=== PATIENT | female | born 1945 | race Caucasian/White ===

== ENCOUNTER 2023-01-29 15:52 | Emergency (ER) | payer OTHER ==
[~2023-01-29] VITALS: Ht 137.2 cm; Wt 92.5 kg
[2023-01-29 16:28] LABS: BASOPHILS # (AUTO) 0.1 K/uL (0.0-0.2); BASOPHILS % (AUTO) 0.7 % (0.0-2.0); EOSINOPHILS # (AUTO) 0.5 K/uL (0.0-0.7); EOSINOPHILS % (AUTO) 6.2 % (0.0-6.0); HEMATOCRIT 37 % (33-45); HEMOGLOBIN 12.4 g/dL (11.5-14.8); LYMPHOCYTES # (AUTO) 1.1 K/uL (0.8-4.8); LYMPHOCYTES % (AUTO) 14.2 % (20.0-44.0); MEAN CORPUSCULAR HEMOGLOBIN 27 PG (26.0-33.0); MEAN CORPUSCULAR HGB CONC 34 g/dl (31.0-36.0); MEAN CORPUSCULAR VOLUME 81 fL (82-100); MONOCYTES # (AUTO) 0.6 K/uL (0.1-1.30); MONOCYTES % (AUTO) 8.3 % (2.0-12.0); NEUTROPHILS # (AUTO) 5.5 K/uL (1.8-8.9); NEUTROPHILS % (AUTO) 70.6 % (43.0-81.0); PLATELET COUNT (AUTO) 291 K/uL (150-450); RED BLOOD CELL COUNT(AUTO) 4.52 MIL/uL (4.0-5.2); RED CELL DISTRIBUTION WIDTH 16.9 % (11.5-15.0); WHITE BLOOD COUNT (AUTO) 7.7 K/uL (4.3-11.0)
[2023-01-29] MEDS ORDERED: LISI10TA29 PO (16:48)
[2023-01-29] MEDS ORDERED: HYDR200T4 PO (16:48)
[2023-01-29] MEDS ORDERED: FOLI0.4T6 PO (16:48)
[2023-01-29] MEDS ORDERED: TRAM50TA PO (16:49)
[2023-01-29] MEDS ORDERED: ACET-868 PO (16:49)
[2023-01-29] MEDS ORDERED: ALEN70TA80 PO (16:51)
[2023-01-29 16:58] LABS: ALANINE AMINOTRANSFERASE 22 U/L (12-78); ALBUMIN 3.1 g/dL (3.4-5.0); ALKALINE PHOSPHATASE 67 U/L (46-116); ASPARTATE AMINOTRANSFERASE 39 U/L (15-37); BILIRUBIN,DIRECT 0.2 mg/dL (0.0-0.2); CALCIUM, SERUM 8.9 mg/dL (8.5-10.1); CHLORIDE 98 mmol/L (98-107); CREATININE 0.4 mg/dL (0.6-1.3); GLUCOSE 91 mg/dL (74-106); NT-PRO BNP 915 pg/mL (0-125); POTASSIUM 4.6 mmol/L (3.5-5.1); SODIUM SERUM 131 mmol/L (136-145); UREA NITROGEN, BLOOD 8 mg/dL (7-18)
[2023-01-29 17:12] LABS: CARBON DIOXIDE 23 mmol/L (21-32); TOTAL PROTEIN, SERUM 6.7 g/dL (6.4-8.2)
[2023-01-29] MEDS ORDERED: FUROSEMIDE 40 MG/4 ML VIAL ONE (17:29)
[2023-01-29] MEDS ORDERED: NITROGLYCERIN PACKET 1 GM PACKET ONE (17:30)
[2023-01-29] MEDS ORDERED: ASPIRIN 325 MG TABLET PO ONE (17:30)
[2023-01-29] MEDS ORDERED: NITROGLYCERIN PACKET 1 GM PACKET TD ONE (17:30)
[2023-01-29] MEDS ORDERED: FUROSEMIDE 40 MG/4 ML VIAL IV ONE (17:30)
[2023-01-29] MEDS ORDERED: ASPIRIN 325 MG TABLET ONE (17:30)
[2023-01-29] MEDS ORDERED: diphenhydrAMINE HCL 50 MG/ML VIAL ONE (17:45)
[2023-01-29] MEDS ORDERED: diphenhydrAMINE HCL 50 MG/ML VIAL IV ONE (18:00)
[2023-01-29] MEDS ORDERED: MAGNESIUM HYDROXIDE 30 ML UDC PO PRN (18:30)
[2023-01-29] MEDS ORDERED: Z GUARD REMEDY 4 OZ OINT TP PRN (18:30)
[2023-01-29] MEDS ORDERED: FUROSEMIDE 40 MG/4 ML VIAL IV SCH (18:30)
[2023-01-29] MEDS ORDERED: ONDANSETRON HCL/PF 4 MG/2 ML VIAL IVP PRN (18:30)
[2023-01-29] MEDS ORDERED: MAG HYDROX/AL HYDROX/SIMETH 30 ML UDC PO PRN (18:30)
[2023-01-29] MEDS ORDERED: ACETAMINOPHEN 325 MG TABLET PO PRN (18:30)
[2023-01-29] MEDS ORDERED: ENOXAPARIN SODIUM 40 MG/0.4 ML DISP.SYRIN SQ SCH (18:30)
[2023-01-29] MEDS ORDERED: ACETAMINOPHEN ES 500 MG TABLET PO ONE (19:00)
[2023-01-29] MEDS ORDERED: ACETAMINOPHEN ES 500 MG TABLET ONE (19:02)
[2023-01-29] MEDS ORDERED: VANCOMYCIN 1.5 GM in IV D5W 500 ML IV SCH (20:00)
[2023-01-29 23:24] VITALS: BP 103/74; TEMP 98.5; O2SAT 95
[2023-01-30] MEDS ORDERED: VANCOMYCIN 1.25 GM in IV D5W 250 ML IV SCH (20:00)
== END 2023-01-29 23:26 | disposition short-term general hospital (02) ==
LOC: ER 15:58
DX: I11.0 Hypertensive heart disease with heart failure (principal); I50.21 Acute systolic (congestive) heart failure; Z20.822 Contact with and (suspected) exposure to COVID-19
CPT/HCPCS: 99285; 93307; 93970; 96365; 71045; 96375; 87426; 93005; 85025; 80048; 80076; 36415; 84484 ×2; 83880; J1200; J1940; J3370; J7060; C9803

== ENCOUNTER 2023-03-16 14:38 | Emergency (ER) | payer MEDICARE, OTHER ==
[~2023-03-16] VITALS: Ht 137.2 cm; Wt 92.1 kg
[~2023-03-16 14:38] MED LIST: ACET-868 PO; ALEN70TA80 PO; FOLI0.4T6 PO; HYDR200T4 PO; LISI10TA29 PO; TRAM50TA PO
[2023-03-16] MEDS ORDERED: IV NS 0.9% 250 ML IV ONE (15:38)
[2023-03-16] MEDS ORDERED: IOHEXOL-300 100 ML VIAL IV ONE (15:38)
[2023-03-16] MEDS ORDERED: IOHEXOL-350 100 ML VIAL IV ONE (15:41)
[2023-03-16 16:01] LABS: BASOPHILS % (AUTO) 0.5 % (0.0-2.0); EOSINOPHILS # (AUTO) 0.1 K/uL (0.0-0.7); EOSINOPHILS % (AUTO) 1.5 % (0.0-6.0); HEMATOCRIT 41 % (33-45); HEMOGLOBIN 13.6 g/dL (11.5-14.8); MEAN CORPUSCULAR HEMOGLOBIN 28 PG (26.0-33.0); MEAN CORPUSCULAR HGB CONC 34 g/dl (31.0-36.0); MEAN CORPUSCULAR VOLUME 84 fL (82-100); MONOCYTES # (AUTO) 0.5 K/uL (0.1-1.30); MONOCYTES % (AUTO) 8.3 % (2.0-12.0); NEUTROPHILS # (AUTO) 4.7 K/uL (1.8-8.9); NEUTROPHILS % (AUTO) 73.7 % (43.0-81.0); PLATELET COUNT (AUTO) 271 K/uL (150-450); RED BLOOD CELL COUNT(AUTO) 4.87 MIL/uL (4.0-5.2); RED CELL DISTRIBUTION WIDTH 16.1 % (11.5-15.0); WHITE BLOOD COUNT (AUTO) 6.4 K/uL (4.3-11.0)
[2023-03-16 16:09] LABS: CALCIUM, SERUM 8.6 mg/dL (8.5-10.1); CARBON DIOXIDE 20 mmol/L (21-32); CHLORIDE 102 mmol/L (98-107); CREATININE 0.4 mg/dL (0.6-1.3); GLUCOSE 75 mg/dL (74-106); MAGNESIUM 1.8 mg/dL (1.8-2.4); POTASSIUM 3.5 mmol/L (3.5-5.1); SODIUM SERUM 133 mmol/L (136-145); UREA NITROGEN, BLOOD 4 mg/dL (7-18)
[2023-03-16] MEDS ORDERED: diphenhydrAMINE HCL 50 MG/ML VIAL IV ONE (18:00)
[2023-03-16] MEDS ORDERED: METOCLOPRAMIDE HCL 10 MG/2 ML VIAL IV ONE (18:00)
[2023-03-16 18:24] LABS: APPEARANCE,URINE CLEAR (CLEAR); BILIRUBIN,URINE NEGATIVE (NEGATIVE); BLOOD, URINE TRACE-INTA Ery/uL (NEGATIVE); COLOR,URINE YELLOW (YELLOW); KETONES,URINE 1+ mg/dL (NEGATIVE); LEUKOCYTE ESTERASE ,URINE NEGATIVE (NEGATIVE); NITRITE, URINE NEGATIVE (NEGATIVE); PH,URINE 5.5 (5.0-8.0); PROTEIN,URINE NEGATIVE (NEGATIVE); UGLUCOSE NEGATIVE (NEGATIVE); UROBILINOGEN,URINE 0.2 EU/dL (0.2)
[2023-03-16 18:30] LABS: ADD URINE CULTURE NO; BACTERIA,URINE None seen /HPF (None Seen); SQUAMOUS EPITHELIAL CELL,UR 0-2 /HPF (None Seen); WBC,URINE 0-2 /HPF (0-3)
[2023-03-16] MEDS ORDERED: KETOROLAC TROMETHAMINE INJ 30 MG/ML VIAL IV ONE (19:30)
[2023-03-16] MEDS ORDERED: diphenhydrAMINE HCL 50 MG/ML VIAL ONE (19:45)
[2023-03-16] MEDS ORDERED: METOCLOPRAMIDE HCL 10 MG/2 ML VIAL ONE (19:46)
[2023-03-16] MEDS ORDERED: KETOROLAC TROMETHAMINE INJ 30 MG/ML VIAL ONE (19:46)
[2023-03-16 23:56] VITALS: BP 143/91; TEMP 98.3; O2SAT 98
== END 2023-03-16 23:56 | disposition home or self-care (01) ==
LOC: ER 15:26
DX: R51.9 Headache, unspecified (principal); I11.0 Hypertensive heart disease with heart failure; I50.9 Heart failure, unspecified; M06.9 Rheumatoid arthritis, unspecified
CPT/HCPCS: 99285; 70498; 96374; 71045; 96375; 93005; 70496; 74176; 85025; 80048; 83735; 81001; 36415; 84484; J1200; J2765; J1885; J7050; Q9967